=== PATIENT | male | born 1955 | race Caucasian/White ===

== ENCOUNTER 2022-03-14 12:38 | Emergency (ER) | payer OTHER ==
[~2022-03-14] VITALS: Ht 170.2 cm; Wt 103.4 kg
[2022-03-14 12:53] VITALS: BP_SYST 157
--- NOTE | 2022-03-14 12:58 | NUR ---
Triaged pt and placed in waiting room until a bed becomes available. A&Ox4. VSS. Dr. Bravo made aware.
--- NOTE | 2022-03-14 12:58 | NUR ---
Pt c/o 5 days ago having difficulty urinating accompanied with burning sensation and frequency with urinating. Pt A&Ox4. SKin intact. VSS. Pt has hx of HTN and prostate complications. NKA. Ambulatory with steady gait. Pupils PERRLA.
--- NOTE | 2022-03-14 13:33 | NUR ---
Urine collected and sent to lab.
[2022-03-14 13:46] LABS: BILIRUBIN,URINE NEGATIVE (NEGATIVE); BLOOD, URINE 3+ (NEGATIVE); COLOR,URINE YELLOW (YELLOW); GLUCOSE,URINE 3+ (NEGATIVE); KETONES,URINE NEGATIVE (NEGATIVE); LEUKOCYTE ESTERASE ,URINE NEGATIVE (NEGATIVE); NITRITE, URINE NEGATIVE (NEGATIVE); PROTEIN URINE 1+ (NEGATIVE); UROBILINOGEN,URINE 0.2 (0.2-1.0)
[2022-03-14 13:53] LABS: CLARITY/URINE CLOUDY (CLEAR)
[2022-03-14 14:40] LABS: BACTERIA,URINE FEW /HPF (None Seen); RBC,URINE 20-50 /HPF (0-3); WBC,URINE NONE SEEN /HPF (0-3)
[2022-03-14 17:12] LABS: CALCIUM 8.6 mg/dL (8.4-11.0); CREATININE 0.89 mg/dL (0.55-1.30); POTASSIUM 4.7 mmol/L (3.5-5.1)
[2022-03-14 17:13] LABS: BASOPHILS % (AUTO) 0.3 % (0.0-2.0); EOSINOPHILS # (AUTO) 0.1 K/uL (0.0-0.4); EOSINOPHILS % (AUTO) 1.3 % (0.0-4.0); LYMPHOCYTES # (AUTO) 1.2 K/uL (1.0-5.5); LYMPHOCYTES % (AUTO) 18.9 % (20.5-51.5); MEAN CORPUSCULAR HEMOGLOBIN 32 pg (27-31); MEAN CORPUSCULAR HGB CONC 35 % (32-36); MEAN CORPUSCULAR VOLUME 93 fL (79.0-98.0); MONOCYTES # (AUTO) 0.5 K/uL (0.0-1.0); MONOCYTES % (AUTO) 7.9 % (1.7-9.3); NEUTROPHILS # (AUTO) 4.5 K/uL (1.8-7.7); NEUTROPHILS % (AUTO) 71.6 % (40.0-70.0); RED BLOOD CELL COUNT(AUTO) 4.65 MIL/uL (4.2-6.2); WHITE BLOOD COUNT (AUTO) 6.3 K/uL (4.8-10.8)
[2022-03-14 17:16] LABS: ALBUMIN 3.9 g/dL (3.4-4.8); TOTAL BILIRUBIN 0.9 mg/dL (0.0-1.0)
[2022-03-14] MEDS ORDERED: TAMSULOSIN HCL 0.4 MG CAP PO ONE (18:15)
--- NOTE | 2022-03-14 18:30 | NUR ---
Dr Maloney evaluating patient at bedside
[2022-03-14] MEDS ORDERED: TAMS-11 PO (19:15)
[2022-03-14 19:35] LABS: PLATELET COUNT (AUTO) 98 K/uL (130-430)
[2022-03-14 19:45] VITALS: BP_SYST 157
--- NOTE | 2022-03-14 19:48 | NUR ---
Patient given written and verbal discharge instructions and verbalizes understanding. ER MD discussed with patient the results and treatment provided. Patient in stable condition. ID arm band removed. Rx of flomax given. Patient educated on pain management and to follow up with PMD. Pain Scale 2/10. Opportunity for questions provided and answered. Medication side effect fact sheet provided.
== END 2022-03-14 19:48 | disposition home or self-care (01) ==
LOC: SED 12:38
DX: N28.89 Other specified disorders of kidney and ureter (principal); R31.9 Hematuria, unspecified; N40.0 Benign prostatic hyperplasia without lower urinary tract symptoms; E11.9 Type 2 diabetes mellitus without complications; Z79.899 Other long term (current) drug therapy
CPT/HCPCS: 36415; 76376; 80053; 81000; 85025; 99284

== ENCOUNTER 2023-02-12 14:41 | Inpatient (IN) | payer BC, OTHER ==
[~2023-02-12] VITALS: Ht 170.2 cm; Wt 96.8 kg
[~2023-02-12 14:41] MED LIST: TAMS-11 PO
[2023-02-12 14:51] VITALS: BP_SYST 138
--- NOTE | 2023-02-12 15:15 | NUR ---
Pt bib spouse from home Chief complaint fever 100.3 and dry cough with associated headache and nausea: spouse notes diaphretic this morning. Abdominal pain to umbilical region radiates to right flank 2/10. Pt denies SOB, denies vomiting,pt is cool and dry, states general weakness since Friday a week ago. PMHx HTN, Diabetes, BPH.
--- NOTE | 2023-02-12 15:20 | NUR ---
ER at bedside examining patient.
--- NOTE | 2023-02-12 15:25 | NUR ---
Radiology bedside taking Xray; pt tolerates well.
--- NOTE | 2023-02-12 15:29 | NUR ---
COVID AND FLU SWABBED AND SENT TO LAB @9026
[2023-02-12] MEDS ORDERED: IBUPROFEN 800 MG TABLET PO ONE (15:30)
[2023-02-12] MEDS ORDERED: BENZONATATE 100 MG CAPSULE (TESSALON) PO ONE (15:30)
--- NOTE | 2023-02-12 15:30 | NUR ---
Nasal swabbed for specimen collection EMT delivered to lab.
--- NOTE | 2023-02-12 15:40 | NUR ---
EKG performed at BS by Vadim. Physician given copy of EKG for review.
--- NOTE | 2023-02-12 16:46 | NUR ---
contacted radiology dept. tech notes will upload info.
--- NOTE | 2023-02-12 17:04 | NUR ---
Pt is aaox3, diaphretic, with saturation 92% on room air. MD Lawrence is notified. MD Lawrence notes lung left lower lobe infilltrates initiates sepsis protocol.
--- NOTE | 2023-02-12 17:15 | NUR ---
# 20 gauge angiocath placed to right forearm. Use of asceptic technique. Opsite placed over site. Blood return noted. Blood for lab drawn from site. Flushed with 10 cc of normal saline. No evidence of infiltration noted. Patient tolerated well.
[2023-02-12] MEDS ORDERED: AZITHROMYCIN 500 MG in NS 250 ML IV ONE (17:30)
[2023-02-12] MEDS ORDERED: cefTRIAXone 1 GM in D5W 50 ML IV ONE (17:30)
--- NOTE | 2023-02-12 17:31 | NUR ---
Blood cultures drawn, prior to administration of antibiotic.
[2023-02-12 17:40] LABS: BASOPHILS % (AUTO) 0.3 % (0.0-2.0); HEMATOCRIT 39.7 % (36-54); LYMPHOCYTES # (AUTO) 0.7 K/uL (1.0-5.5); LYMPHOCYTES % (AUTO) 7.8 % (20.5-51.5); MEAN CORPUSCULAR HEMOGLOBIN 32 pg (27-31); MEAN CORPUSCULAR HGB CONC 35 % (32-36); MEAN CORPUSCULAR VOLUME 92 fL (79.0-98.0); MONOCYTES # (AUTO) 0.9 K/uL (0.0-1.0); MONOCYTES % (AUTO) 10.4 % (1.7-9.3); NEUTROPHILS # (AUTO) 6.8 K/uL (1.8-7.7); NEUTROPHILS % (AUTO) 81.5 % (40.0-70.0); PLATELET COUNT (AUTO) 189 K/uL (130-430); RED BLOOD CELL COUNT(AUTO) 4.33 MIL/uL (4.2-6.2); WHITE BLOOD COUNT (AUTO) 8.4 K/uL (4.8-10.8)
[2023-02-12] MEDS ORDERED: AZITHROMYCIN 500 MG/VIAL (ZITHROMAX) IV ONE (17:44)
[2023-02-12] MEDS ORDERED: cefTRIAXone 1 GM VIAL ONE (17:44)
[2023-02-12 17:50] LABS: ANION GAP 8 (5-15); CALCIUM 8.6 mg/dL (8.4-11.0); CREATININE 1.31 mg/dL (0.55-1.30); GFR AFRICAN AMERICAN 71 mL/min (>90); UREA NITROGEN, BLOOD 26 mg/dL (8-21)
[2023-02-12 17:57] LABS: ALANINE AMINOTRANSFERASE 42 U/L (12-78); ASPARTATE AMINOTRANSFERASE 34 U/L (10-37)
[2023-02-12 17:58] LABS: CHLORIDE 84 mmol/L (98-107)
--- NOTE | 2023-02-12 18:01 | NUR ---
Accucheck: 452 blood sugar notified MD Lawrence reported by Jairo mirza.
[2023-02-12 18:02] LABS: GLUCOSE 452 mg/dL (70-99)
--- NOTE | 2023-02-12 18:03 | NUR ---
NOTIFIED ED ADMITTING,[facility], REGARDING DR. MARTEL'S REQUEST FOR ADMISSION/TRANSFER. PER DR. MARTEL, PT IS STABLE FOR TRANFER. WILL CONTACT SWITCHBOARD WIRER REGARDING THIS MATTER. PER FACESHEET: JELLY CONSTANTINO
[2023-02-12] MEDS ORDERED: NACL 0.9% 1,000 ML IV ONE (18:15)
[2023-02-12] MEDS ORDERED: INSULIN REGULAR, HUMAN 10 UNITS/0.1 ML, 3 ML VIAL IVP ONE (18:15)
--- NOTE | 2023-02-12 18:53 | NUR ---
Admit bed requested Patient will be admitted to care of . Admitted to TELE unit. Diagnosis PNEUMONIA WITH RESPIRATORY FAILURE Inpatient (Yes or No) Y Observation (Yes or No) N Orientation concerns or request close to nursing station (Yes or No) N Covid Status NA On vent or bipap N Isolation requirements N Needs a sitter N From Home (Yes or if No enter name of facility) HOME Requires Dialysis (Yes or No) N Med Rec Completed (Yes of No) YES
[2023-02-12] MEDS ORDERED: NACL 0.9% 2,000 ML IV ONE (19:00)
--- NOTE | 2023-02-12 19:00 | NUR ---
MEDICATION NOT RECONCILED D/T PATIENT POOR HISTORIAN. PATIENT REFUSED PM MEAL. FLUIDS RUNNING. PROVIDED EDUCATION REGARDING USAGE OF INSULIN D/T PATIENT HESITATION AT TIME OF RN ADMIN OF ORDERED DOSE. WILL ENDORSE ROCEPHIN ORDERS TO ONCOMING SHIFT.
[2023-02-12 20:00] VITALS: BP_SYST 111
--- NOTE | 2023-02-12 20:00 | NUR ---
pt.received via the er-dept.pt.admit dx;pna/respiratory failure.pt.presents general status stable.respiratory status stable unlabored:o2 therapy administered via nasal cannulae;rate:2l/min.02-sat%=98%.v/s,data collection attended to.pt.stated regalado:$3,000.oo in regalado.pt.stated regalado to remain w him.pt.received #1/2 ns litres in the er=dept.i am to initiate the #2/2 ns litres fluids.call light/telephone presented to pt.placed w/in access of the pt.
--- NOTE | 2023-02-12 20:17 | NUR ---
Patient will be admitted to care of DR. QUIGLEY. Admitted to TELEMETRY unit. Will go to room 103B. Belongings list completed. Complete and up to date summary report printed. SBAR report to be given at bedside with opportunity for questions.
--- NOTE | 2023-02-12 21:00 | NUR ---
the #2/2 ns litres fluids initiated.no c/o pain,nausea.no requests posited@this hour.o2-sat%=98%.zohaib light/telephone w/in access of the pt.
--- NOTE | 2023-02-12 22:00 | NUR ---
pt.assessed.pt.quiescent.per flacc pain mgx pt.absent facial grimaces/body posturing.iv fluids infusing.pt.capable to reposition self.call light/telephone w/in access of the pt.
[2023-02-12] MEDS ORDERED: ACETAMINOPHEN 325 MG TABLET PO PRN (22:45)
[2023-02-12] MEDS ORDERED: IPRATROPIUM BROM 0.5 MG/2.5 ML VIAL.NEB (ATROVENT) INH PRN (22:45)
[2023-02-12] MEDS ORDERED: HYDROcodone/ACETAMIN 5-325 MG TAB (NORCO/ VICODIN) PO PRN (22:45)
[2023-02-12] MEDS ORDERED: ONDANSETRON HCL 4 MG/2 ML VIAL IVP PRN (22:45)
[2023-02-12] MEDS ORDERED: ALBUTEROL SULFATE 0.083% 2.5 MG/3 ML VIAL.NEB INH PRN (22:45)
[2023-02-12] MEDS ORDERED: NALOXONE HCL 0.4 MG/ML AMP (NARCAN) IVP PRN ×2 (22:45)
[2023-02-12] MEDS ORDERED: HYDROcodone/ACETAMIN 10-325 MG TAB PO PRN (22:45)
[2023-02-12] MEDS ORDERED: LORazepam 2 MG/ML VIAL IVP PRN (22:45)
--- NOTE | 2023-02-13 | NUR ---
pt.assessed.v/s assessed values wnl.02-sat%=98%.no c/o pain,nausea.no requests posited@this hour.pt.capable reposition self.call light/telephone w/in access of the pt.
--- NOTE | 2023-02-13 | NUR ---
pt.assessed.v/s assessed values wnl.o2-sat%=98%.no c/o pain,nausea.no requests posited@this hour.call light/telephone w/in access of the pt.
[2023-02-13 01:59] VITALS: BP_SYST 110
[2023-02-13] MEDS ORDERED: DEXTROSE 50% JECT 50 ML DISP.SYRIN IVP PRN (02:00)
[2023-02-13] MEDS ORDERED: GLUCOSE (DEXTROSE) ORAL GEL -Adults PO PRN (02:00)
[2023-02-13] MEDS ORDERED: D5W 1,000 ML IV PRN (02:00)
--- NOTE | 2023-02-13 02:00 | NUR ---
pt.assessed.pt.presented headache.tylenol:650 mg administered:to assess the efficacy of the pain medication per pain mgx protocol.urine sample collected sent lab.call light/telephone w/inc access of the pt.
--- NOTE | 2023-02-13 02:04 | NUR ---
Consultation Paged Reason for Consultation: Pneumonia and Respiratory Failure Was consult called: Y Person who was notified: Mindy Consulting Physician: Sterling Connors Ordering Physician: John Kennedy
--- NOTE | 2023-02-13 02:09 | NUR ---
Consultation Paged Reason for Consultation: resp. failure Was consult called: Y Person who was notified: Leigh Consulting Physician: Dr. Hu Ordering Physician: John Kennedy
[2023-02-13] MEDS: guaiFENesin 200 MG/CODEINE 20 MG/ 10 ML UDC PO PRN ×2 (02:19→12:49)
[2023-02-13 02:28] LABS: BILIRUBIN,URINE NEGATIVE (NEGATIVE); BLOOD, URINE NEGATIVE (NEGATIVE); CLARITY/URINE CLEAR (CLEAR); COLOR,URINE YELLOW (YELLOW); GLUCOSE,URINE 3+ (NEGATIVE); KETONES,URINE 1+ (NEGATIVE); LEUKOCYTE ESTERASE ,URINE NEGATIVE (NEGATIVE); NITRITE, URINE NEGATIVE (NEGATIVE); PROTEIN URINE NEGATIVE (NEGATIVE)
[2023-02-13 03:51] VITALS: BP_SYST 111
--- NOTE | 2023-02-13 04:00 | NUR ---
pt.assessed.pt.quiescent.per flacc pain mgx pt.absent facial grimaces/body posturing.o2-sat%=98%.pt.capable to reposition self.call light/telephone w/in access of the pt.
[2023-02-13] MEDS: NORMAL SALINE 5 ML DISP.SYRIN IVF SCH ×3 (05:29→21:28)
[2023-02-13] MEDS: INSULIN REGULAR, HUMAN 100 UNITS/ML, 3 ML VIAL (humuLIN R) SUBCUT PRN ×4 (05:34→21:30)
[2023-02-13] MEDS ORDERED: NORMAL SALINE 5 ML DISP.SYRIN IVF SCH (06:00)
--- NOTE | 2023-02-13 06:00 | NUR ---
pt.assessed.no c/o pain,nausea.blood glucose assessed value;289mg/dl.insulin;regular;6-u administered.02-sat%=98%. call light/telephone placed w/in access of the pt.
[2023-02-13 06:14] LABS: BASOPHILS % (AUTO) 0.5 % (0.0-2.0); EOSINOPHILS % (AUTO) 0.3 % (0.0-4.0); HEMATOCRIT 39.1 % (36-54); HEMOGLOBIN 13.5 g/dL (14.0-18.0); LYMPHOCYTES # (AUTO) 0.8 K/uL (1.0-5.5); LYMPHOCYTES % (AUTO) 11.3 % (20.5-51.5); MEAN CORPUSCULAR HEMOGLOBIN 32 pg (27-31); MEAN CORPUSCULAR HGB CONC 35 % (32-36); MEAN CORPUSCULAR VOLUME 92 fL (79.0-98.0); MONOCYTES # (AUTO) 0.8 K/uL (0.0-1.0); MONOCYTES % (AUTO) 11.2 % (1.7-9.3); NEUTROPHILS # (AUTO) 5.5 K/uL (1.8-7.7); NEUTROPHILS % (AUTO) 76.7 % (40.0-70.0); PLATELET COUNT (AUTO) 175 K/uL (130-430); RED BLOOD CELL COUNT(AUTO) 4.25 MIL/uL (4.2-6.2); RED CELL DISTRIBUTION WIDTH 12.4 % (9.0-15.0); WHITE BLOOD COUNT (AUTO) 7.2 K/uL (4.8-10.8)
[2023-02-13 06:33] LABS: CALCIUM 8.3 mg/dL (8.4-11.0); CREATININE 0.83 mg/dL (0.55-1.30)
[2023-02-13 08:00] VITALS: BP_SYST 120
--- NOTE | 2023-02-13 08:00 | NUR ---
Start of shift Pt sitting up in bed eating his breakfast. O2 on at 2L/nc, Tele unit attached and intact at this time. Pt ambulatory to restroom. Denies any needs at this time. Pt close to nurses' station for close observation for needs and care. Pt's bed in low position and bed side rails raised. Call light within reach.
[2023-02-13] MEDS: TAMSULOSIN HCL 0.4 MG CAP PO SCH (09:08)
[2023-02-13] MEDS ORDERED: PIOGLITAZONE HCL 15 MG TABLET PO ONE (10:15)
--- NOTE | 2023-02-13 10:27 | NUR ---
CONSULTATION PAGED REASON FOR CONSULTATION:HYPONATREMIA WAS CONSULT CALLED?Y PERSON WHO WAS NOTIFIED:MYELA CONSULTING PHYSICIAN:CALVIN ESPARZA ( ABORIGINAL LIAISON OFFICER) INSTANT POTATO PROCESSING SUPERVISOR SPECIALTY:NEPHRO INSTANT POTATO PROCESSING SUPERVISOR PHONE NUMBER:[phone] REQUESTING PHYSICIAN:CHARLEEN FRAGOSO
--- NOTE | 2023-02-13 10:29 | NUR ---
CONSULTATION PAGED/CALLED Reason for Consultation: [] HYPONATREMIA Person Who was Notified: [] MIKHAIL Consulting Physician: [] DR CATHIE MANRIQUEZ Port Crane Operator Specialty: [] NEPHROLOGY Ordering Physician: [] DR Maricel QUIGLEY
--- NOTE | 2023-02-13 10:35 | NUR ---
CONSULTATION PAGED REASON FOR CONSULTATION:DM WAS CONSULT CALLED?Y PERSON WHO WAS NOTIFIED:BRITTANY MAE CONSULTING PHYSICIAN:ANGELA MAE TOBACCO FARMWORKER SPECIALTY:ENDO TOBACCO FARMWORKER PHONE NUMBER:[phone] REQUESTING PHYSICIAN:CHARLEEN FRAGOSO
--- NOTE | 2023-02-13 11:00 | NUR ---
Tele Tele unit was dc'd and returned to vehicle monitor technician.
[2023-02-13 11:39] VITALS: BP_SYST 115
--- NOTE | 2023-02-13 13:00 | NUR ---
Note Dr Webb (nephro) came to bedside and assessed pt. Orders written and carried out. Pt's family members in the room visiting and at bedside. Pt stable, no needs noted. Call light within reach.
[2023-02-13 14:00] LABS: BILIRUBIN,URINE NEGATIVE (NEGATIVE); BLOOD, URINE NEGATIVE (NEGATIVE); CLARITY/URINE CLEAR (CLEAR); COLOR,URINE YELLOW (YELLOW); GLUCOSE,URINE 2+ (NEGATIVE); KETONES,URINE TRACE (NEGATIVE); LEUKOCYTE ESTERASE ,URINE NEGATIVE (NEGATIVE); NITRITE, URINE NEGATIVE (NEGATIVE); PROTEIN URINE 1+ (NEGATIVE)
[2023-02-13] MEDS: NACL 0.9% 1,000 ML IV SCH ×2 (14:00→21:28)
[2023-02-13 14:04] LABS: UROBILINOGEN,URINE >=8 (0.2-1.0)
[2023-02-13 14:07] LABS: BACTERIA,URINE RARE /HPF (None Seen); MUCUS,URINE 1+ /LPF (None Seen); RBC,URINE 0-3 /HPF (0-3); WBC,URINE 0-3 /HPF (0-3)
[2023-02-13 15:49] VITALS: BP_SYST 124
[2023-02-13] MEDS: AZITHROMYCIN 500 MG in NS 250 ML IV SCH (17:06)
[2023-02-13] MEDS ORDERED: metFORMIN HCL 500 MG TABLET PO SCH (18:00)
--- NOTE | 2023-02-13 18:15 | NUR ---
End of shift Pt sitting up in bed eating his dinner. RAC IV intact and patent infusing IVF's well. Pt denies any SOB/resp distress at this time. Pt was checked on q1' and PRN for needs and care. Pt was maintained with safety precautions all shift. Pt next to nurses' station for close observation. Pt has O2 at 2L/nc all shift. Call light within reach. No needs noted at this time.
[2023-02-13] MEDS: cefTRIAXone 1 GM IVPB PREMIX 50 ML IV SCH (19:55)
[2023-02-13 20:00] VITALS: BP_SYST 127
[2023-02-14 00:40] VITALS: BP_SYST 106
[2023-02-14] MEDS: NACL 0.9% 1,000 ML IV SCH ×2 (04:08→17:12)
[2023-02-14 05:26] LABS: BASOPHILS % (AUTO) 0.3 % (0.0-2.0); EOSINOPHILS # (AUTO) 0.1 K/uL (0.0-0.4); EOSINOPHILS % (AUTO) 1.4 % (0.0-4.0); HEMATOCRIT 37.7 % (36-54); HEMOGLOBIN 13.4 g/dL (14.0-18.0); LYMPHOCYTES % (AUTO) 17.1 % (20.5-51.5); MEAN CORPUSCULAR HEMOGLOBIN 33 pg (27-31); MEAN CORPUSCULAR HGB CONC 35 % (32-36); MEAN CORPUSCULAR VOLUME 92 fL (79.0-98.0); MONOCYTES # (AUTO) 0.6 K/uL (0.0-1.0); MONOCYTES % (AUTO) 10.3 % (1.7-9.3); NEUTROPHILS % (AUTO) 70.9 % (40.0-70.0); PLATELET COUNT (AUTO) 181 K/uL (130-430); RED BLOOD CELL COUNT(AUTO) 4.11 MIL/uL (4.2-6.2); RED CELL DISTRIBUTION WIDTH 11.9 % (9.0-15.0); WHITE BLOOD COUNT (AUTO) 5.7 K/uL (4.8-10.8)
[2023-02-14 05:58] LABS: ALBUMIN 2.4 g/dL (3.4-4.8); C-REACTIVE PROTEIN QUANT 19.2 mg/dL (0-0.5); CALCIUM 8.2 mg/dL (8.4-11.0); CREATININE 0.68 mg/dL (0.55-1.30); THYROID STIMULATING HORMONE 0.61 uIu/mL (0.34-4.82); TOTAL BILIRUBIN 0.8 mg/dL (0.0-1.0); URIC ACID 3.7 mg/dL (2.4-7.0)
[2023-02-14] MEDS: NORMAL SALINE 5 ML DISP.SYRIN IVF SCH ×3 (06:27→20:33)
[2023-02-14] MEDS: INSULIN REGULAR, HUMAN 100 UNITS/ML, 3 ML VIAL (humuLIN R) SUBCUT PRN ×3 (06:34→20:35)
[2023-02-14 07:03] LABS: ERYTHROCYTE SEDIMENTATION RATE 73 MM/HR (0-15)
[2023-02-14] MEDS: metFORMIN HCL 500 MG TABLET PO SCH ×2 (08:19→17:11)
[2023-02-14] MEDS: PIOGLITAZONE HCL 15 MG TABLET PO SCH (08:20)
[2023-02-14] MEDS: TAMSULOSIN HCL 0.4 MG CAP PO SCH (08:20)
[2023-02-14 08:21] VITALS: BP_SYST 114
[2023-02-14] MEDS: IPRATROPIUM/ALBUTEROL SULFATE 3 ML AMPUL.NEB (DUONEB) INH SCH ×4 (11:15→23:26)
[2023-02-14 11:25] VITALS: BP_SYST 121
--- NOTE | 2023-02-14 12:29 | NUR ---
NAZANIN planning for home health; RN for disease management. CM faxed referral to [facility]# [phone]. will follow up.
--- NOTE | 2023-02-14 13:43 | NUR ---
CM follow up with [facility] [phone]. Spoke with Merry who informs that they will accept the patient for service delivery management consultant. [facility] fax# [phone] if patient discharged this weekend. RN to fax updated information to [facility] on day of discharge. [facility] does not do IV abx so if patient needs home IV abx CM will need an order for IV abx and send a referral for a different agency.
[2023-02-14 15:01] VITALS: BP_SYST 138
[2023-02-14] MEDS: guaiFENesin 200 MG/CODEINE 20 MG/ 10 ML UDC PO PRN (17:11)
[2023-02-14] MEDS: AZITHROMYCIN 500 MG in NS 250 ML IV SCH (17:13)
[2023-02-14 19:00] VITALS: BP_SYST 133
--- NOTE | 2023-02-14 19:15 | NUR ---
change of shift.pt.quiscent.no c/o pain,nausea.pt.presents iv access location rt.forearm intact;patent iv fluids infusing. 02-sat%=96%@room air.pt.capable to reposition self/ambulate un-assisted.call light/telephone w/in access of the pt.
[2023-02-14 20:00] VITALS: BP_SYST 133
--- NOTE | 2023-02-14 20:00 | NUR ---
pt.assessed.v/s assessed values wnl.o2-sat%=96%@room air.iv access intact;patent.pt.apprised snacks/beverages are available w/in the shift.no requests posited@this hour.call light/telephone w/in access of the pt.
--- NOTE | 2023-02-14 20:30 | NUR ---
blood glucose assessed value;228mg/dl.
[2023-02-14] MEDS: cefTRIAXone 1 GM IVPB PREMIX 50 ML IV SCH (20:32)
[2023-02-14] MEDS: HEPARIN SODIUM,PORCINE 5,000 UNITS/ML VIAL SUBCUT SCH (20:36)
--- NOTE | 2023-02-14 21:00 | NUR ---
2100p medications administered.insulin;regular:6-u administered per sliding scale.no c/o pain,nausea.no requests posited@ this hour.call light/telephone w/in access of the pt.
--- NOTE | 2023-02-14 22:00 | NUR ---
pt.assessed.pt.quiescent.no c/o pain,nausea.no requests posited@this hour.iv access intact;patent.pt.capable to reposition self.call light/telephone w/in access of the pt.
--- NOTE | 2023-02-15 | NUR ---
pt.assessed.v/s assessed values wnl.no c/o pain,nausea.no request posited@this hour.o2-sat%=96%.pt.capable to reposition self.call light/telephone w/in access of the pt.
--- NOTE | 2023-02-15 02:00 | NUR ---
pt.assessed.pt.quiescent.02-sat%=98%.per flacc pain mgx pt.absent facial grimaces/body posturing.iv access intact; patent iv fluids infusing.pt.capable to reposition self.call light/telephone w/in access of the pt.
[2023-02-15 02:34] VITALS: BP_SYST 143
[2023-02-15] MEDS: IPRATROPIUM/ALBUTEROL SULFATE 3 ML AMPUL.NEB (DUONEB) INH SCH ×2 (03:00→07:19)
--- NOTE | 2023-02-15 04:00 | NUR ---
pt.assessed.pt.quiescent.per flacc pain mgx pt.absent facial grimaces/body posturing.02-fri%=96%.pt.capable to reposition self.call light/telephone w/in access of the pt.
[2023-02-15] MEDS: NACL 0.9% 1,000 ML IV SCH (05:35)
[2023-02-15] MEDS: NORMAL SALINE 5 ML DISP.SYRIN IVF SCH (05:35)
[2023-02-15] MEDS: INSULIN REGULAR, HUMAN 100 UNITS/ML, 3 ML VIAL (humuLIN R) SUBCUT PRN (05:52)
--- NOTE | 2023-02-15 06:00 | NUR ---
pt.assessed.blood glucose assessed value:208mg/dl.insulin;regular;4-u administered.no c/o pain,nausea,no requests posited@this hour.call light/telephone w/in access of the pt.
[2023-02-15 07:09] LABS: BASOPHILS % (AUTO) 0.5 % (0.0-2.0); EOSINOPHILS # (AUTO) 0.1 K/uL (0.0-0.4); EOSINOPHILS % (AUTO) 2.4 % (0.0-4.0); HEMATOCRIT 36.9 % (36-54); HEMOGLOBIN 12.9 g/dL (14.0-18.0); LYMPHOCYTES # (AUTO) 0.9 K/uL (1.0-5.5); LYMPHOCYTES % (AUTO) 22.1 % (20.5-51.5); MEAN CORPUSCULAR HEMOGLOBIN 32 pg (27-31); MEAN CORPUSCULAR HGB CONC 35 % (32-36); MEAN CORPUSCULAR VOLUME 92 fL (79.0-98.0); MONOCYTES # (AUTO) 0.3 K/uL (0.0-1.0); MONOCYTES % (AUTO) 7.6 % (1.7-9.3); NEUTROPHILS # (AUTO) 2.8 K/uL (1.8-7.7); NEUTROPHILS % (AUTO) 67.4 % (40.0-70.0); PLATELET COUNT (AUTO) 181 K/uL (130-430); RED BLOOD CELL COUNT(AUTO) 4.02 MIL/uL (4.2-6.2); WHITE BLOOD COUNT (AUTO) 4.1 K/uL (4.8-10.8)
[2023-02-15 07:23] LABS: C-REACTIVE PROTEIN QUANT 9.6 mg/dL (0-0.5); CALCIUM 8.2 mg/dL (8.4-11.0); CREATININE 0.63 mg/dL (0.55-1.30)
--- NOTE | 2023-02-15 07:55 | NUR ---
OPENING NOTES: PATIENT SITTING EDGE OF BED PUTTING ON HIS SHOES. NO S/S OF DISTRESS OR PAIN REPORTED. BREATHING IS EVEN AND UNLABORED ON RA 96%. EDUCATED PATIENT ON USE OF CALL LIGHT. PATIENT VERBALIZED UNDERSTANDING. ALL NEEDS MET AT THIS TIME, SAFETY CHECKS MADE AND CALL LIGHT WITHIN REACH.
[2023-02-15 08:00] VITALS: BP_SYST 133
[2023-02-15 08:09] LABS: ERYTHROCYTE SEDIMENTATION RATE 56 MM/HR (0-15)
[2023-02-15] MEDS: PIOGLITAZONE HCL 15 MG TABLET PO SCH (08:35)
[2023-02-15] MEDS: TAMSULOSIN HCL 0.4 MG CAP PO SCH (08:35)
[2023-02-15] MEDS: metFORMIN HCL 500 MG TABLET PO SCH (08:35)
[2023-02-15] MEDS: HEPARIN SODIUM,PORCINE 5,000 UNITS/ML VIAL SUBCUT SCH (08:38)
[2023-02-15 09:06] LABS: CORTISOL (SERUM) 11.9 ug/dL (6.2-19.4)
[2023-02-15] MEDS ORDERED: AMOX-423 PO (10:18)
[2023-02-15] MEDS ORDERED: GLIP10TA11 PO (10:18)
[2023-02-15] MEDS ORDERED: AZIT500T10 PO (10:18)
[2023-02-15] MEDS ORDERED: METF-379 PO (10:18)
[2023-02-15 11:00] VITALS: BP_SYST 117
== END 2023-02-15 11:30 | disposition home health service (06) | DRG 193 ==
LOC: SED 14:41 → STU 18:55 → SMU 02-13 20:13
PROVIDERS: ADMIT Preventive Medicine Preventive Medicine/Occupational Environmental Medicine; ATTEND Preventive Medicine Preventive Medicine/Occupational Environmental Medicine
DX: J18.9 Pneumonia, unspecified organism (principal); J96.01 Acute respiratory failure with hypoxia; N17.0 Acute kidney failure with tubular necrosis; E87.1 Hypo-osmolality and hyponatremia; E88.09 Other disorders of plasma-protein metabolism, not elsewhere classified; N40.0 Benign prostatic hyperplasia without lower urinary tract symptoms; E83.51 Hypocalcemia; E11.65 Type 2 diabetes mellitus with hyperglycemia; I12.9 Hypertensive chronic kidney disease with stage 1 through stage 4 chronic kidney disease, or unspecified chronic kidney disease; E11.22 Type 2 diabetes mellitus with diabetic chronic kidney disease; N18.9 Chronic kidney disease, unspecified; Z20.822 Contact with and (suspected) exposure to COVID-19; D72.819 Decreased white blood cell count, unspecified; D64.9 Anemia, unspecified; E66.3 Overweight; Z79.4 Long term (current) use of insulin; Z79.84 Long term (current) use of oral hypoglycemic drugs; Z68.33 Body mass index [BMI] 33.0-33.9, adult
CPT/HCPCS: 36415; 71045; 72100-TC; 80048; 80053; 81000; 81003; 82306; 82533; 83037; 83605; 83735; 83880; 83930; 83935; 84100; 84302; 84443; 84484; 84550; 85025; 85651-TC; 86140; 87040; 93005; 94010; 94640; 94760; 96365; 96367; 96375; 99285; G0378; J0456; J0696; J1644; J1815; J7050